=== PATIENT | male | born 1970 | race Caucasian/White ===

== ENCOUNTER 2021-04-24 10:52 | Emergency (ER) | payer OTHER ==
[2021-04-24 11:54] LABS: ANION GAP 17.6 mmol/L (5-15); CHLORIDE,CL 101 mmol/L (98-107); SODIUM,NA 139 mmol/L (136-145)
== END 2021-04-24 12:40 | disposition home or self-care (01) ==
LOC: KA.ED 10:52
DX: U07.1 COVID-19 (principal); E66.9 Obesity, unspecified; N40.0 Benign prostatic hyperplasia without lower urinary tract symptoms; Z68.38 Body mass index [BMI] 38.0-38.9, adult; Z72.0 Tobacco use
CPT/HCPCS: 36415; 71045; 80053; 85025; 99283-25

== ENCOUNTER 2022-12-17 10:02 | Day surgery (SDC) | payer OTHER ==
[~2022-12-17 10:02] MED LIST: Lactated Ringers 1,000 ML IV SCH; Sodium Chloride 0.9% 10 ML Syringe FLUSH PRN
[2022-12-17] MEDS ORDERED: Propofol 200 MG/20 ML SDV IV ONE (10:03)
[2022-12-17] MEDS ORDERED: Midazolam 1 MG/ML 2 ML SDV ONE (10:43)
[2022-12-17] MEDS ORDERED: Propofol 200 MG/20 ML SDV ONE ×3 (10:43→11:48)
== END 2022-12-17 13:20 | disposition home or self-care (01) ==
LOC: KA.SDS 10:02
PROVIDERS: ATTEND Family Medicine
DX: D12.6 Benign neoplasm of colon, unspecified (principal); D12.0 Benign neoplasm of cecum; K63.5 Polyp of colon; K57.30 Diverticulosis of large intestine without perforation or abscess without bleeding; K64.8 Other hemorrhoids; G47.33 Obstructive sleep apnea (adult) (pediatric); R31.29 Other microscopic hematuria; R39.12 Poor urinary stream; E78.5 Hyperlipidemia, unspecified; F17.210 Nicotine dependence, cigarettes, uncomplicated; R74.01 Elevation of levels of liver transaminase levels
CPT/HCPCS: 00812; J2250; J2704; J7120